=== PATIENT | female | born 1980 | race Caucasian/White ===

== ENCOUNTER 2017-04-08 13:23 | Emergency (ER) | payer MEDICAID ==
[2017-04-08] MEDS ORDERED: NORMAL SALINE 1000 ML 1,000 ML IV ONE ×2 (13:44→17:37)
[2017-04-08] MEDS ORDERED: PROCHLORPERAZINE EDISYLATE INJ 10 MG/2 ML VIAL IV ONE (13:44)
[2017-04-08] MEDS ORDERED: KETOROLAC TROMETHAMINE INJ/PF 30 MG/1 ML SDV IV ONE (13:44)
[2017-04-08] MEDS ORDERED: DIPHENHYDRAMINE HCL 50 MG/ML VIAL IV ONE (13:44)
--- NOTE | 2017-04-08 13:48 | ER Document Report ---
ED Medical Screen (RME) - General Chief Complaint: Headache Stated Complaint: HEADACHE Time Seen by Provider: 04/08/17 13:40 Notes: Patient with history of migraines according to her significant other/boyfriend. Past medical records obtained here show patient has multiple visits for migraines. Patient began having headache yesterday. Now having severe headache. Boyfriend states that she cannot talk when she gets this way. Patient was able to nod her head when asked if she wanted treatment. I have greeted and performed a rapid initial assessment of this patient. A comprehensive ED assessment and evaluation of the patient, analysis of test results and completion of the medical decision making process will be conducted by additional ED providers. TRAVEL OUTSIDE OF THE [place] IN LAST 30 DAYS: No - Related Data Allergies/Adverse Reactions: No Known Allergies Allergy (Verified 01/13/16 12:38) Past Medical History Neurological Medical History: Reports: Hx Migraine - Immunizations Hx Diphtheria, Pertussis, Tetanus Vaccination: Yes - 2 years Physical Exam - Vital signs Vitals: Temp Pulse Resp BP Pulse Ox 97.7 F 98 20 118/73 100 04/08/17 13:28 04/08/17 13:28 04/08/17 13:28 04/08/17 13:28 04/08/17 13:28 Course - Vital Signs Vital signs: Temp Pulse Resp BP Pulse Ox 97.7 F 98 20 118/73 100 04/08/17 13:28 04/08/17 13:28 04/08/17 13:28 04/08/17 13:28 04/08/17 13:28
--- NOTE | 2017-04-08 16:41 | ER Document Report ---
ED General - General Chief Complaint: Headache Stated Complaint: HEADACHE Time Seen by Provider: 04/08/17 13:40 Information source: Relative - TRAVEL OUTSIDE OF THE [place] IN LAST 30 DAYS: No - HPI Patient complains to provider of: headache Onset: This morning Notes: Patient at this moment is not talking to history is obtained by her . states that patient does occasionally get migraines. She takes Motrin or Tylenol at home and when they do not get better she goes emergency department for treatment. She is usually nonverbal until the pain is controlled. She also on occasion has lost sight and had weakness of one side of her body or the other with these migraines. states he went to work today and left home knowing she had a mild headache it was taking Motrin or Tylenol for it. When he arrived home he found vomit on the floor and he found the patient in bed nonverbal. He walked her to the car and then brought her here for evaluation. - Related Data Allergies/Adverse Reactions: No Known Allergies Allergy (Verified 01/13/16 12:38) Past Medical History - General Information source: Relative - - Social History Smoking Status: Unknown if Ever Smoked Frequency of alcohol use: None Drug Abuse: None Lives with: Family Family History: Reviewed & Not Pertinent, Other - father has hx of migraines Patient has suicidal ideation: No Patient has homicidal ideation: No - Past Medical History Cardiac Medical History: Reports: None Pulmonary Medical History: Reports: None EENT Medical History: Reports: None Neurological Medical History: Reports: Hx Migraine Endocrine Medical History: Reports: None Renal/ Medical History: Denies: Hx Peritoneal Dialysis Malignancy Medical History: Reports: None GI Medical History: Reports: None Musculoskeltal Medical History: Reports None Skin Medical History: Reports None Psychiatric Medical History: Reports: None Traumatic Medical History: Reports: None Infectious Medical History: Reports: None Past Surgical History: Reports: None Other: Medical history obtained from the . - Immunizations Hx Diphtheria, Pertussis, Tetanus Vaccination: Yes - 2 years Review of Systems - Review of Systems -: Yes ROS unobtainable due to patient's medical condition Physical Exam - Vital signs Vitals: Temp Pulse Resp BP Pulse Ox 97.7 F 98 20 118/73 100 04/08/17 13:28 04/08/17 13:28 04/08/17 13:28 04/08/17 13:28 04/08/17 13:28 - Notes Notes: PHYSICAL EXAMINATION: GENERAL: She was lying in bed prone with a blanket covering her and appeared in no acute distress. HEAD: Atraumatic, normocephalic. EYES: Pupils equal round and reactive to light, extraocular movements intact, conjunctiva are normal. ENT: Nares patent. Moist mucous membranes. NECK: Normal range of motion, supple without lymphadenopathy LUNGS: Breath sounds clear to auscultation bilaterally and equal. No wheezes rales or rhonchi. HEART: Regular rate and rhythm without murmurs ABDOMEN: Soft, nontender, nondistended abdomen. No guarding, no rebound. No masses appreciated. Female : deferred Musculoskeletal: Normal range of motion, no pitting or edema. No cyanosis. NEUROLOGICAL: Cranial nerves grossly intact. Normal motor exams PSYCH: Patient will sit up in bed to reach for the blanket strap herself in them. She will not make eye contact. She seems to be slightly agitated. She will occasionally but not consistently follow simple commands. She will not verbalize. SKIN: Warm, dry, normal turgor, no rashes or lesions noted. Course - Re-evaluation Re-evalutation: 04/08/17 16:44 Patient is difficult to examine. She is uncooperative at this time. She will sit up on her own grabbing a blankets to cover herself however she will not interact with me or answer any questions. I did reiterate to the nurse that she needs to establish an IV as well as simple blood work and having IV fluids. I also asked for a temperature and if needed a rectal temperature. I did explain to the that because the patient is not answering my questions and demonstrating normal mentation I need to investigate further to make sure there is no other process going on besides her normal migraine. Patient's verbalized understanding. Did order soft mittens for the patient because she has dislodged the IV. 04/08/17 17:37 Did review patient's old charts and the last time she was here she was here for headaches. Patient continually has a leukocytosis. She has even spiked a temp in the past. states that patient has had multiple spinal taps, MRIs, CTs and they have all been negative for any acute findings. Awaiting rest of labs to result. Patient is getting IV fluids. She is already received IV medications for her headache we will see if they have any effect on her pain. Vital signs remained stable. 04/08/17 18:48 Labs- All tests 24 hr 04/08/17 04/08/17 04/08/17 14:00 14:00 17:23 WBC 17.7 H RBC 4.70 Hgb 14.8 Hct 43.6 MCV 93 MCH 31.5 MCHC 34.0 RDW 13.4 Plt Count 322 Seg Neutrophils % 90.4 H Lymphocytes % 5.4 L Monocytes % 4.0 Eosinophils % 0.0 Basophils % 0.2 Absolute Neutrophils 16.0 H Absolute Lymphocytes 1.0 Absolute Monocytes 0.7 Absolute Eosinophils 0.0 Absolute Basophils 0.0 Sodium Cancelled Potassium Cancelled Chloride Cancelled Carbon Dioxide Cancelled Anion Gap Cancelled BUN Cancelled Creatinine Cancelled Est GFR ( Amer) Cancelled Est GFR (Non-Af Amer) Cancelled Glucose Cancelled Calcium Cancelled Total Bilirubin Cancelled Direct Bilirubin Cancelled Neonat Total Bilirubin Cancelled Neonat Direct Bilirubin Cancelled Neonat Indirect Bili Cancelled AST Cancelled ALT Cancelled Alkaline Phosphatase Cancelled Total Protein Cancelled Albumin Cancelled Urine Color YELLOW Urine Appearance CLEAR Urine pH 8.0 Ur Specific [place] 1.023 Urine Protein NEGATIVE Urine Glucose (UA) NEGATIVE Urine Ketones 20 H Urine Blood NEGATIVE Urine Nitrite NEGATIVE Urine Bilirubin NEGATIVE Urine Urobilinogen NEGATIVE Ur Leukocyte Esterase NEGATIVE Urine WBC (Auto) 1 Urine RBC (Auto) 1 Squamous Epi Cells Auto <1 Urine Mucus (Auto) OCC Urine Ascorbic Acid NEGATIVE Urine Opiates Screen Urine Methadone Screen Ur Barbiturates Screen Ur Phencyclidine Scrn Ur Amphetamines Screen U Benzodiazepines Scrn Urine Cocaine Screen U Marijuana (THC) Screen 04/08/17 04/08/17 17:23 18:11 WBC RBC Hgb Hct MCV MCH MCHC RDW Plt Count Seg Neutrophils % Lymphocytes % Monocytes % Eosinophils % Basophils % Absolute Neutrophils Absolute Lymphocytes Absolute Monocytes Absolute Eosinophils Absolute Basophils Sodium 138.3 Potassium 3.5 L Chloride 109 H Carbon Dioxide 21 L Anion Gap 8 BUN 9 Creatinine 0.63 Est GFR ( Amer) > 60 Est GFR (Non-Af Amer) > 60 Glucose 85 Calcium 8.6 Total Bilirubin 0.4 Direct Bilirubin 0.0 Neonat Total Bilirubin Not Reportable Neonat Direct Bilirubin Not Reportable Neonat Indirect Bili Not Reportable AST 26 ALT 33 Alkaline Phosphatase 77 Total Protein 6.5 Albumin 3.9 Urine Color Urine Appearance Urine pH Ur Specific [place] Urine Protein Urine Glucose (UA) Urine Ketones Urine Blood Urine Nitrite Urine Bilirubin Urine Urobilinogen Ur Leukocyte Esterase Urine WBC (Auto) Urine RBC (Auto) Squamous Epi Cells Auto Urine Mucus (Auto) Urine Ascorbic Acid Urine Opiates Screen NEGATIVE Urine Methadone Screen NEGATIVE Ur Barbiturates Screen NEGATIVE Ur Phencyclidine Scrn NEGATIVE Ur Amphetamines Screen NEGATIVE U Benzodiazepines Scrn NEGATIVE Urine Cocaine Screen NEGATIVE U Marijuana (THC) Screen NEGATIVE 04/08/17 18:48 Pt is more awake. Talking to her a bit. Third liter of NSS ordered. 04/08/17 18:58 Pt. more awake now. Opens eyes with verbal stimuli by . Third liter infusing. No meningeal signs. Pt. will sit up in bed and move her head all around without any signs of discomfort. She has no photophobia upon opening her eyes in the brightly lite room. Pt.'s states patient is acting normal for her migraines. She is improving. Closely monitoring patient at this time. 04/08/17 19:08 04/08/17 19:37 Holding patient's left arm straight so that the IV infuses. 500 cc more to go. has been by the bedside for most of the patient's visit. s He had to go home for a short time to get medications that were locked up so his parents can give them to his children. She does now open her eyes with verbal stimuli. She is taking a few sips of ice water. he states she does not have a neurologist and is not taking any medications for her migraines except motrin or tylenol. She did take some tylenol today but he is not sure at what time. 04/08/17 20:04 Pt. awake and ambulatory. Verbal with a "fuck you" to RN as she was taking out IV. states he wants to take patient home to sleep. I did go over reasons to bring her back including but not limited to fevers, return of headache, decreased mentation . 04/09/17 09:12 I did call the patient this morning. I spoke to her Toñito. He states that the patient's headache has resolved she has been up into the bathroom she is drinking fluids and is on his way to get her something to eat. I did tell him to definitely touch base with her primary medical doctor or neurologist to see if she will be placed on a medication to that in the future when she feels her prodrome for migraine she can take medication to try and avert this. He also stated that she did not recall the events of last evening. - Vital Signs Vital signs: Temp Pulse Resp BP Pulse Ox 98.0 F 102 H 20 129/91 H 98 04/08/17 19:40 04/08/17 19:40 04/08/17 13:28 04/08/17 19:40 04/08/17 19:40 04/08/17 19:47 Temp Pulse Resp BP Pulse Ox 100.3 F 94 20 124/77 99 04/08/17 17:13 04/08/17 17:15 04/08/17 13:28 04/08/17 17:15 04/08/17 17:15 04/08/17 19:48 Pt.'s vitals WNL at this time. Temp is 98.3. - Laboratory Result Diagrams: 04/08/17 14:00 04/08/17 18:11 Laboratory results interpreted by me: 04/08/17 04/08/17 04/08/17 14:00 17:23 18:11 WBC 17.7 H Seg Neutrophils % 90.4 H Lymphocytes % 5.4 L Absolute Neutrophils 16.0 H Potassium 3.5 L Chloride 109 H Carbon Dioxide 21 L Urine Ketones 20 H Discharge - Discharge Clinical Impression: Migraine Condition: Stable Disposition: HOME, SELF-CARE Instructions: Headache ([facility]) Additional Instructions: Follow up with your physician tomorrow for further care or return to the ED IMMEDIATELY if symptoms worsen or new concerns occur. If you cannot afford to follow up with your primary care physician a list of low cost clinics have been provided at the end of your discharge papers as well. Referrals: IMMANUEL WEINER MD [ACTIVE STAFF] - Follow up as needed JOHN REEVES MD [ACTIVE STAFF] - Follow up as needed
[2017-04-08 17:29] LABS: ABSOLUTE MONOCYTES (AUTO) 0.7 10^3/uL (0.1-1.4); BASOPHILS % (AUTO) 0.2 % (0-2); HEMATOCRIT 43.6 % (36.0-47.0); HEMOGLOBIN 14.8 g/dL (12.0-15.5); LYMPHOCYTES % (AUTO) 5.4 % (13-45); MEAN CORPUSCULAR HEMOGLOBIN 31.5 pg (27.0-33.4); MEAN CORPUSCULAR VOLUME 93 fl (80-97); PLATELET COUNT 322 10^3/uL (150-450); RED CELL DISTRIBUTION WIDTH 13.4 % (11.5-14.0); SEGMENTED NEUTROPHILS % (AUTO) 90.4 % (42-78); TOTAL CELLS COUNTED % (AUTO) 100 %; WHITE BLOOD COUNT 17.7 10^3/uL (4.0-10.5)
[2017-04-08 17:50] LABS: APPEARANCE,URINE CLEAR; BILIRUBIN,URINE NEGATIVE (NEGATIVE); COLOR,URINE YELLOW; GLUCOSE, URINE NEGATIVE (NEGATIVE); KETONES,URINE 20 mg/dL (NEGATIVE); LEUKOCYTE ESTERASE,URINE NEGATIVE (NEGATIVE); NITRITE,URINE NEGATIVE (NEGATIVE); PROTEIN,URINE NEGATIVE (NEGATIVE); URINE SPECIFIC GRAVITY 1.023; UROBILINOGEN,URINE NEGATIVE mg/dL (<2.0)
[2017-04-08 18:06] LABS: URINE AMPHETAMINES SCREEN NEGATIVE; URINE BARBITURATES SCREEN NEGATIVE; URINE BENZODIAZEPINES SCREEN NEGATIVE; URINE COCAINE SCREEN NEGATIVE; URINE MARIJUANA (THC) SCREEN NEGATIVE; URINE METHADONE SCREEN NEGATIVE; URINE PHENCYCLIDINE SCREEN NEGATIVE
[2017-04-08 18:41] LABS: ALANINE AMINOTRANSFERASE 33 U/L (9-52); ALBUMIN 3.9 g/dL (3.5-5.0); ALKALINE PHOSPHATASE 77 U/L (38-126); ANION GAP 8 (5-19); ASPARTATE AMINO TRANSFERASE 26 U/L (14-36); BILIRUBIN,TOTAL 0.4 mg/dL (0.2-1.3); BLOOD UREA NITROGEN 9 mg/dL (7-20); CALCIUM 8.6 mg/dL (8.4-10.2); CARBON DIOXIDE 21 mmol/L (22-30); CHLORIDE 109 mmol/L (98-107); GLUCOSE 85 mg/dL (75-110); POTASSIUM 3.5 mmol/L (3.6-5.0); SODIUM 138.3 mmol/L (137-145); TOTAL PROTEIN 6.5 g/dL (6.3-8.2)
[2017-04-08 20:08] VITALS: BP 129/91
== END 2017-04-08 20:08 | disposition home or self-care (01) ==
LOC: ER 13:23
DX: G43.909 Migraine, unspecified, not intractable, without status migrainosus (principal)
CPT/HCPCS: 99285; 96361; 51701; 96374; 96375; 36415; 85025; 80053; 81001; 80307; J1200; J1885; J0780; J7030

== ENCOUNTER 2017-07-31 19:23 | Emergency (ER) | payer MEDICAID ==
[2017-07-31 19:50] VITALS: BP 121/81
[2017-07-31] MEDS ORDERED: KETOROLAC TROMETHAMINE INJ/PF 30 MG/1 ML SDV IM ONE (20:39)
[2017-07-31] MEDS ORDERED: METOCLOPRAMIDE HCL INJ/PF 10 MG/2 ML SDV IM ONE (20:39)
[2017-07-31] MEDS ORDERED: DIPHENHYDRAMINE HCL 50 MG/ML VIAL IM ONE (20:39)
--- NOTE | 2017-07-31 20:42 | ER Document Report ---
ED Headache - General Chief Complaint: Headache Stated Complaint: HEADACHE Time Seen by Provider: 07/31/17 20:33 Mode of Arrival: Ambulatory Information source: Relative Cannot obtain history due to: Uncooperative TRAVEL OUTSIDE OF THE [place] IN LAST 30 DAYS: No - HPI Patient complains to provider of: Headache Notes: Patient is here with her significant other at the bedside. Patient is here with complaints of headache. Apparently she has a history of migraine headaches and the longer she has a headache the more unresponsive she gets according to her significant other. Is unable to get any significant history from the patient herself, she will open her eyes but will not answer any questions. Again her significant other states that this is her typical activity during a migraine. He denies any falls or injuries. No fever. No vomiting or diarrhea. He does report that she was complaining of some nausea earlier in the day. No rashes. No chest pain or shortness of breath. No neck stiffness. No blood thinners. No other complaints at this time. - Related Data Allergies/Adverse Reactions: No Known Allergies Allergy (Verified 01/13/16 12:38) Past Medical History - Social History Smoking Status: Current Every Day Smoker Family History: Reviewed & Not Pertinent, Other - father has hx of migraines Neurological Medical History: Reports: Hx Migraine Renal/ Medical History: Denies: Hx Peritoneal Dialysis - Immunizations Hx Diphtheria, Pertussis, Tetanus Vaccination: Yes - 2 years Review of Systems - Review of Systems -: Yes All other systems reviewed and negative Physical Exam - Vital signs Vitals: Temp Pulse Resp BP Pulse Ox 97.5 F 84 18 121/81 100 07/31/17 19:48 07/31/17 19:48 07/31/17 19:48 07/31/17 19:48 07/31/17 19:48 - Notes Notes: GENERAL: alert, cooperative, nontoxic, no distress. HEAD: normocephalic, atraumatic EYES: conjunctiva pink without discharge, no external redness or swelling. Pupils equal round react to light bilaterally. EARS: no external swelling, no external redness. TMs pearly diane, no erythema, no perforation. NOSE: atraumatic, no external swelling MOUTH/THROAT: mucous membranes moist and pink, posterior pharynx without erythema, swelling, exudate. No trismus or drooling. NECK: soft, supple, full range of motion, no meningismus. CHEST: no distress, lungs clear and equal throughout. No wheezing, rales, rhonchi. CARDIAC: regular rate and rhythm, no murmur, normal capillary refill, normal pulses. No peripheral edema noted. ABDOMEN: Soft, nontender. BACK: full range of motion, no CVA tenderness. EXTREMITIES: full range of motion of all extremities. No redness, no swelling. NEURO: Patient is moving all 4 extremities. Patient will open her eyes but will not really follow any commands. She has no obvious facial asymmetry. Significant other states that this is her normal behavior during a migraine. PYSCH: appropriate mood, affect. Patient is cooperative. SKIN: pink, warm, dry, no rash. Course - Re-evaluation Re-evalutation: 07/31/17 22:51 Patient continues to wake up but not really follow commands. She will perform activities such as covering herself up and turning over in adjusting her pillow , but will not answer questions or follow commands. She fought the nursing staff when trying to get her injections for her migraine medicine. I discussed patient's state with her , he states that this is her normal behavior when she has a migraine. He states that she will be like this until tomorrow when she wakes up. States that he would prefer to take the patient home at this time as this is her normal behavior with a migraine. In reviewing her records, this is the patient's typical presentation when she has been here for migraines. She has had audible workups in the past without any significant findings. Did offer further workup of the patient, but the declines as he states this is her very typical behavior. Patient has a nonfocal neurological exam. She is afebrile. No rash. Remainder of her exam is unremarkable. The 's request, the patient will be discharged home without further workup. He will be instructed to return immediately should she develop any worsening symptoms, high fever, persistent vomiting, or have any further concerns. The patient is noted to have elevated blood pressure during today's emergency department visit. The patient was informed of this finding. The patient was instructed that this may be related to pre-hypertension and requires further evaluation with a primary care provider. The patient has no hypertensive symptoms at this time. The patient's emergency department workup and current diagnosis were explained to the patient and or family. Follow-up instructions were provided. Medications if prescribed were discussed. Instructions for when to return to the emergency department including specific worrisome symptoms were discussed with the patient and/or family. - Vital Signs Vital signs: Temp Pulse Resp BP Pulse Ox 97.5 F 84 18 121/81 100 07/31/17 19:48 07/31/17 19:48 07/31/17 19:48 07/31/17 19:48 07/31/17 19:48 Discharge - Discharge Clinical Impression: Migraine Qualifiers: Migraine type: without aura Status migrainosus presence: without status migrainosus Intractability: not intractable Qualified Code(s): G43.009 - Migraine without aura, not intractable, without status migrainosus Condition: Stable Disposition: HOME, SELF-CARE Instructions: Headache ([facility]) Additional Instructions: Follow-up with her doctor at the next available appointment. Return the emergency department for worsening symptoms, high fever, neck stiffness, persistent vomiting, rash, or for any further concerns. Your blood pressure was elevated during today's visit. Have this rechecked with your doctor. Forms: Elevated Blood Pressure, Smoking Cessation Education Referrals: HOOD HEMPHILL MD [Primary Care Provider] - Follow up as needed
== END 2017-07-31 23:13 | disposition home or self-care (01) ==
LOC: ER 19:23
DX: G43.009 Migraine without aura, not intractable, without status migrainosus (principal); F17.200 Nicotine dependence, unspecified, uncomplicated
CPT/HCPCS: 99283; 96372; J1200; J1885; J2765

== ENCOUNTER 2017-08-10 06:47 | Emergency (ER) | payer MEDICAID ==
--- NOTE | 2017-08-10 07:07 | ER Document Report ---
ED Headache - General Chief Complaint: Headache Stated Complaint: HEADACHE Mode of Arrival: Ambulatory Information source: Patient Notes: 37-year-old female complaining of right sided throbbing headache that started yesterday morning when she woke up. It is very typical for her headaches. Her father had migraines and she gets headaches every several months although she did have one last week that she was treated in the emergency department for the only medicine she has at home to treat the headaches as Motrin and Tylenol. She missed work yesterday and today but they do not accept work notes. No fever or chills. No sore throat runny nose or cough. No chest pain or abdominal pain. No vomiting or diarrhea. No rash. Denies . TRAVEL OUTSIDE OF THE [place] IN LAST 30 DAYS: No - Related Data Allergies/Adverse Reactions: No Known Allergies Allergy (Verified 01/13/16 12:38) Past Medical History - General Information source: Patient - Social History Smoking Status: Current Every Day Smoker Frequency of alcohol use: None Drug Abuse: None Lives with: Spouse/Significant other Family History: Reviewed & Not Pertinent, Other - father has hx of migraines Neurological Medical History: Reports: Hx Migraine Renal/ Medical History: Denies: Hx Peritoneal Dialysis Surgical Hx: Negative - Immunizations Hx Diphtheria, Pertussis, Tetanus Vaccination: Yes - 2 years Review of Systems - Review of Systems Constitutional: No symptoms reported EENT: No symptoms reported Cardiovascular: No symptoms reported Respiratory: No symptoms reported Gastrointestinal: No symptoms reported Genitourinary: No symptoms reported Female Genitourinary: No symptoms reported Musculoskeletal: No symptoms reported Skin: No symptoms reported Hematologic/Lymphatic: No symptoms reported Neurological/Psychological: See HPI Physical Exam - Vital signs Vitals: Temp Pulse Resp BP Pulse Ox 97.7 F 74 16 112/81 97 08/10/17 06:49 08/10/17 06:49 08/10/17 06:49 08/10/17 06:49 08/10/17 06:49 Interpretation: Normal - General General appearance: Appears well, Alert - HEENT Head: Normocephalic, Atraumatic Eyes: Normal Conjunctiva: Normal Extraocular movements intact: Yes Pupils: PERRL Neck: Supple. No: Lymphadenopathy - Respiratory Respiratory status: No respiratory distress Chest status: Nontender Breath sounds: Normal Chest palpation: Normal - Cardiovascular Rhythm: Regular Heart sounds: Normal auscultation Murmur: No - Abdominal Inspection: Normal Distension: No distension Bowel sounds: Normal Tenderness: Nontender Organomegaly: No organomegaly - Back Back: Normal, Nontender - Extremities General upper extremity: Normal inspection, Nontender, Normal color, Normal ROM , Normal temperature General lower extremity: Normal inspection, Nontender, Normal color, Normal ROM , Normal temperature, Normal weight bearing. No: Dagmar's sign - Neurological Neuro grossly intact: Yes Cognition: Normal Orientation: AAOx4 Fadi Coma Scale Eye Opening: Spontaneous Fadi Coma Scale Verbal: Oriented [place] Coma Scale Motor: Obeys Commands Fadi Coma Scale Total: 15 Speech: Normal Motor strength normal: LUE, RUE, LLE, RLE Sensory: Normal - Psychological Associated symptoms: Normal affect, Normal mood - Skin Skin Temperature: Warm Skin Moisture: Dry Skin Color: Normal Skin irregularity: negative: Rash Course - Re-evaluation Re-evalutation: 08/10/17 08:41 Headache is down to 2.5/5 feels like she can go home. Physical exam is normal. She has seen neurologist before for these headaches. Her dad had a history of migraines. She gets them every couple months although she had one last week. Medicine at home she has for headaches with Motrin and Tylenol. I will add in Reglan p.o. to see if that helps. 08/10/17 08:42 - Vital Signs Vital signs: Temp Pulse Resp BP Pulse Ox 97.7 F 74 16 112/81 97 08/10/17 06:49 08/10/17 06:49 08/10/17 06:49 08/10/17 06:49 08/10/17 06:49 Discharge - Discharge Clinical Impression: Headache Qualifiers: Headache type: unspecified Headache chronicity pattern: acute headache Intractability: not intractable Qualified Code(s): R51 - Headache Condition: Good Disposition: HOME, SELF-CARE Instructions: Use of Diphenhydramine, Headache ([facility]), Reglan ([facility]), Toradol Injection ([facility]) Additional Instructions: When he had a headache at home trying Motrin 800 mg, Tylenol 650 mg, Benadryl 50 mg, Reglan 10 mg p.o. to see if that helps. See the neurologist for follow-up Return to the emergency room if symptoms worsen Prescriptions: Metoclopramide HCl [Reglan 10 mg Tablet] 10 mg PO QIDP PRN #30 tablet PRN Reason: For Headache Forms: Return to Work Referrals: IMMANUEL WEINER MD [NO LOCAL MD] - Follow up as needed
[2017-08-10] MEDS ORDERED: METOCLOPRAMIDE HCL INJ/PF 10 MG/2 ML SDV IV ONE (07:12)
[2017-08-10] MEDS ORDERED: NORMAL SALINE 1000 ML 1,000 ML IV ONE (07:12)
[2017-08-10] MEDS ORDERED: DIPHENHYDRAMINE HCL 50 MG/ML VIAL IV ONE (07:12)
[2017-08-10] MEDS ORDERED: KETOROLAC TROMETHAMINE INJ/PF 30 MG/1 ML SDV IV ONE (07:12)
[2017-08-10 09:27] VITALS: BP 105/73
== END 2017-08-10 09:40 | disposition home or self-care (01) ==
LOC: ER 06:47
DX: R51 Headache (principal); F17.200 Nicotine dependence, unspecified, uncomplicated
CPT/HCPCS: 99284; 96361; 96374; 96375; J1200; J1885; J2765; J7030

== ENCOUNTER 2017-10-02 13:32 | Emergency (ER) | payer MEDICAID ==
[2017-10-02 13:41] VITALS: BP 108/70
[2017-10-02] MEDS ORDERED: METOCLOPRAMIDE HCL INJ/PF 10 MG/2 ML SDV IV ONE (14:01)
--- NOTE | 2017-10-02 14:01 | ER Document Report ---
ED Medical Screen (RME) - General Chief Complaint: Headache Stated Complaint: HEADACHE Mode of Arrival: Wheelchair Information source: Patient Notes: This is a 37-year-old female with a history of migraine headache that has had multiple encounters in the ER for such. Previous records show that she has a difficult time following commands during the acute migraine process and that seems to be her baseline when she is suffering from an acute migraine. In triage she has a difficult time answering questions but does state this is typical of her migraine. TRAVEL OUTSIDE OF THE [place] IN LAST 30 DAYS: No - Related Data Allergies/Adverse Reactions: No Known Allergies Allergy (Verified 10/02/17 13:32) Past Medical History Neurological Medical History: Reports: Hx Migraine Renal/ Medical History: Denies: Hx Peritoneal Dialysis - Immunizations Hx Diphtheria, Pertussis, Tetanus Vaccination: Yes - 2 years Physical Exam - Vital signs Vitals: Temp Pulse Resp BP Pulse Ox 97.5 F 80 20 108/70 99 10/02/17 13:38 10/02/17 13:38 10/02/17 13:38 10/02/17 13:38 10/02/17 13:38 Course - Vital Signs Vital signs: Temp Pulse Resp BP Pulse Ox 97.5 F 80 20 108/70 99 10/02/17 13:38 10/02/17 13:38 10/02/17 13:38 10/02/17 13:38 10/02/17 13:38 Doctor's Discharge - Discharge Referrals: ANA LAURA LATHAM MD [Primary Care Provider] - Follow up as needed
[2017-10-02] MEDS ORDERED: HYDROMORPHONE HCL INJ/PF 2 MG/ML AMPULE IV ONE (14:02)
[2017-10-02] MEDS ORDERED: DIPHENHYDRAMINE HCL 50 MG/ML VIAL IV ONE (14:02)
[2017-10-02] MEDS ORDERED: KETOROLAC TROMETHAMINE INJ/PF 30 MG/1 ML SDV IV ONE (14:06)
[2017-10-02] MEDS ORDERED: PROCHLORPERAZINE EDISYLATE INJ 10 MG/2 ML VIAL IV ONE (14:34)
--- NOTE | 2017-10-02 14:46 | ER Document Report ---
ED General - General Chief Complaint: Headache Stated Complaint: HEADACHE Time Seen by Provider: 10/02/17 14:15 Mode of Arrival: Wheelchair Information source: Patient, Relative - at bedside, [facility] Records Cannot obtain history due to: Uncooperative Notes: 37-year-old female history of migraine headache presents with complaints of a migraine headache that started this morning at 10 AM. Patient denies any fevers or chills notes that this is similar to her previous migraines. Patient upon evaluation is noted to be at her usual migraine state where she is quite uncooperative and refuses to answer most questions and continues to scream and curse at staff TRAVEL OUTSIDE OF THE [place] IN LAST 30 DAYS: No - HPI Onset: This morning Onset/Duration: Sudden Quality of pain: Pressure, Throbbing Severity: Moderate Pain Level: 3 Associated symptoms: Headache Exacerbated by: Denies Relieved by: Denies Similar symptoms previously: Yes Recently seen / treated by doctor: Yes - Related Data Allergies/Adverse Reactions: No Known Allergies Allergy (Verified 10/02/17 13:32) Past Medical History - General Information source: Patient - Social History Smoking Status: Current Every Day Smoker Cigarette use (# per day): Yes Chew tobacco use (# tins/day): No Smoking Education Provided: No Frequency of alcohol use: Occasional Drug Abuse: None Family History: Reviewed & Not Pertinent, Other - father has hx of migraines Patient has suicidal ideation: No Patient has homicidal ideation: No Neurological Medical History: Reports: Hx Migraine Renal/ Medical History: Denies: Hx Peritoneal Dialysis - Immunizations Hx Diphtheria, Pertussis, Tetanus Vaccination: Yes - 2 years Review of Systems - Review of Systems Notes: REVIEW OF SYSTEMS: CONSTITUTIONAL : Denies fever, chills, or sweats. Denies recent illness. EENT: Denies eye, ear, throat, or mouth pain or symptoms. Denies nasal or sinus congestion or discharge. Denies throat, tongue, or mouth swelling or difficulty swallowing. CARDIOVASCULAR: Denies chest pain. Denies palpitations or racing or irregular heart beat. Denies ankle edema. RESPIRATORY: Denies cough, cold, or chest congestion. Denies shortness of breath, difficulty breathing, or wheezing. GASTROINTESTINAL: Denies abdominal pain or distention. Denies nausea, vomiting , or diarrhea. Denies blood in vomitus, stools, or per rectum. Denies black, tarry stools. Denies constipation. GENITOURINARY: Denies difficulty urinating, painful urination, burning, frequency, blood in urine, or discharge. FEMALE GENITOURINARY: Denies vaginal bleeding, heavy or abnormal periods, irregular periods. Denies vaginal discharge or odor. MUSCULOSKELETAL: Denies back or neck pain or stiffness. Denies joint pain or swelling. SKIN: Denies rash, lesions or sores. HEMATOLOGIC : Denies easy bruising or bleeding. LYMPHATIC: Denies swollen, enlarged glands. NEUROLOGICAL: Admits to chronic migraine headache difficulty ambulating which appears to be baseline during headaches PSYCHIATRIC: Denies anxiety or stress. Denies depression, suicidal ideation, or homicidal ideation. ALL OTHER SYSTEMS REVIEWED AND NEGATIVE. PHYSICAL EXAMINATION: GENERAL: Patient is verbally abusive towards staff HEAD: Atraumatic, normocephalic. EYES: Pupils equal round and reactive to light, extraocular movements intact, conjunctiva are normal. ENT: Nares patent, oropharynx clear without exudates. Moist mucous membranes. NECK: Normal range of motion, supple without lymphadenopathy LUNGS: Breath sounds clear to auscultation bilaterally and equal. No wheezes rales or rhonchi. HEART: Regular rate and rhythm without murmurs ABDOMEN: Soft, nontender, nondistended abdomen. No guarding, no rebound. No masses appreciated. Female : deferred Musculoskeletal: Normal range of motion, no pitting or edema. No cyanosis. NEUROLOGICAL: Cranial nerves grossly intact. Normal speech, normal gait. Normal sensory, motor exams PSYCH: Verbally abusive SKIN: Warm, Dry, normal turgor, no rashes or lesions noted. Dictation was performed using [employer] voice recognition software Physical Exam - Vital signs Vitals: Temp Pulse Resp BP Pulse Ox 97.5 F 80 20 108/70 99 10/02/17 13:38 10/02/17 13:38 10/02/17 13:38 10/02/17 13:38 10/02/17 13:38 Course - Re-evaluation Re-evalutation: 10/02/17 14:46 Evaluation of multiple previous episodes of similar migraine headaches notes that patient becomes aggressive abusive continues to be uncooperative with medical staff nonetheless she will be treated with a migraine cocktail for her headache 10/02/17 15:30 Patient's resting comfortably, states she will sleep all day and requested I discharge patient home so he can take care of her there, him that he is on this multiple times in the past and believe she is safe for discharge After performing a Medical Screening Examination, I estimate there is LOW risk for ACUTE GLAUCOMA, TEMPORAL ARTERITIS, MENINGITIS, INCRANIAL HEMORRHAGE, or ISCHEMIC STROKE thus I consider the discharge disposition reasonable. I have reevaluated this patient multiple times and no significant life threatening changes are noted. The patient and I have discussed the diagnosis and risks, and we agree with discharging home with close follow-up with the understanding that symptoms and presentations can change. We also discussed returning to the Emergency Department immediately if new or worsening symptoms occur. We have discussed the symptoms which are most concerning (e.g., changing or worsening symptoms, new numbness or weakness, vomiting, fever) that necessitate immediate return. - Vital Signs Vital signs: Temp Pulse Resp BP Pulse Ox 97.5 F 80 20 108/70 99 10/02/17 13:38 10/02/17 13:38 10/02/17 13:38 10/02/17 13:38 10/02/17 13:38 - Laboratory Result Diagrams: 10/02/17 14:50 10/02/17 14:50 Laboratory results interpreted by me: 10/02/17 14:50 WBC 14.8 H Absolute Neutrophils 11.4 H Discharge - Discharge Clinical Impression: Migraine headache Qualifiers: Migraine type: unspecified Status migrainosus presence: without status migrainosus Intractability: not intractable Qualified Code(s): G43.909 - Migraine, unspecified, not intractable, without status migrainosus Condition: Stable Disposition: HOME, SELF-CARE Instructions: Headache ([facility]) Additional Instructions: Follow up with your physician tomorrow for further care or return to the ED IMMEDIATELY if symptoms worsen or new concerns occur. If you cannot afford to follow up with your primary care physician a list of low cost clinics have been provided at the end of your discharge papers as well. Referrals: ANA LAURA LATHAM MD [NO LOCAL MD] - Follow up as needed
[2017-10-02 15:09] LABS: ABSOLUTE BASOPHILS # (AUTO) 0.1 10^3/uL (0.0-0.2); ABSOLUTE EOSINOPHILS # (AUTO) 0.1 10^3/uL (0.0-0.6); ABSOLUTE LYMPHOCYTES (AUTO) 2.4 10^3/uL (0.5-4.7); ABSOLUTE MONOCYTES (AUTO) 0.9 10^3/uL (0.1-1.4); ABSOLUTE NEUT (AUTO) 11.4 10^3/uL (1.7-8.2); BASOPHILS % (AUTO) 0.6 % (0-2); EOSINOPHILS % (AUTO) 0.9 % (0-6); HEMATOCRIT 44.5 % (36.0-47.0); HEMOGLOBIN 14.8 g/dL (12.0-15.5); LYMPHOCYTES % (AUTO) 16.2 % (13-45); MEAN CORPUSCULAR HEMOGLOBIN 31.3 pg (27.0-33.4); MEAN CORPUSCULAR HGB CONC 33.2 g/dL (32.0-36.0); MEAN CORPUSCULAR VOLUME 94 fl (80-97); MONOCYTES % (AUTO) 5.7 % (3-13); PLATELET COUNT 190 10^3/uL (150-450); RED BLOOD COUNT 4.73 10^6/uL (3.72-5.28); RED CELL DISTRIBUTION WIDTH 13.3 % (11.5-14.0); SEGMENTED NEUTROPHILS % (AUTO) 76.6 % (42-78); TOTAL CELLS COUNTED % (AUTO) 100 %; WHITE BLOOD COUNT 14.8 10^3/uL (4.0-10.5)
== END 2017-10-02 15:36 | disposition home or self-care (01) ==
LOC: ER 13:32
DX: G43.909 Migraine, unspecified, not intractable, without status migrainosus (principal); F17.210 Nicotine dependence, cigarettes, uncomplicated
CPT/HCPCS: 99283; 96374; 96375; 36415; 85025; J1200; J1885; J0780

== ENCOUNTER 2017-10-02 18:47 | Emergency (ER) | payer MEDICAID ==
[2017-10-02] MEDS ORDERED: METOCLOPRAMIDE HCL INJ/PF 10 MG/2 ML SDV IV ONE (20:02)
[2017-10-02] MEDS ORDERED: DIPHENHYDRAMINE HCL 50 MG/ML VIAL IV ONE (20:02)
[2017-10-02] MEDS ORDERED: LIDOCAINE 1% INJ-PF (10 MG/ML) 30 ML SDV INJ ONE (20:03)
--- NOTE | 2017-10-02 20:25 | ER Document Report ---
ED General - General Chief Complaint: Headache Stated Complaint: FEVER,MIGRAINE Time Seen by Provider: 10/02/17 19:44 TRAVEL OUTSIDE OF THE [place] IN LAST 30 DAYS: No - HPI Notes: 37-year-old female presents with fever, headache and neck pain and stiffness. Patient of note was seen here several hours ago which time she had presented with her typical migraine and received some type of "cocktail". She gone home and had some improvement but then woke up and had headache and now complains of continuing neck pain and stiffness as well as fever now. 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 Throbbing aching severe bifrontal headache, moderate neck pain and stiffness, sharp, worse with motion. She indicates much of her symptomatology is consistent with previous migraines. She however denies any other source of infection. She has no runny nose, cough, congestion, abdominal pain, diarrhea, urinary symptoms or back pain. Gradual onset. Nonradiating except as described. No other modifying factors, no other associated symptoms, no other provocative or palliative factors. - Related Data Allergies/Adverse Reactions: No Known Allergies Allergy (Verified 10/02/17 13:32) Past Medical History - Social History Smoking Status: Current Every Day Smoker Frequency of alcohol use: Occasional Drug Abuse: None Family History: Reviewed & Not Pertinent, Other - father has hx of migraines Patient has suicidal ideation: No Patient has homicidal ideation: No - Past Medical History Cardiac Medical History: Reports: None Neurological Medical History: Reports: Hx Migraine Renal/ Medical History: Denies: Hx Peritoneal Dialysis - Immunizations Hx Diphtheria, Pertussis, Tetanus Vaccination: Yes - 2 years Review of Systems - Review of Systems Notes: Review of systems as in the history of present illness, otherwise negative x 10 systems. Physical Exam - Vital signs Vitals: Temp Pulse Resp BP Pulse Ox 99.2 F 93 20 106/61 98 10/02/17 18:56 10/02/17 18:56 10/02/17 18:56 10/02/17 18:56 10/02/17 18:56 - Notes Notes: General: Well developed . HEENT: Normocephalic, atraumatic. Pupils equal round reactive to light. No JVD. Chest: No trauma. Respiratory: Good air exchange, normal excursion. Cardiac: Regular rhythm. No murmurs or gallops. Abdomen: Soft, benign. Nondistended. Nontender. Back: No asymmetry or gross abnormality. Motor: Grossly normal power and tone. Neurologic: Alert, nonfocal. Cranial nerves II-12 are intact. Sensation intact. Vascular: Well perfused. Normal peripheral pulses. Skin: No petechiae or purpura. Course - Re-evaluation Re-evalutation: 10/02/17 20:25 37-year-old female the after mentioned symptoms. Much of her symptomatology suggest recurrence of her chronic migraine. However, the fever and associated neck symptoms certainly are concerning for meningitis or meningoencephalitis. At this point we will proceed with basic labs, IV fluids, analgesics, antiemetics, proceed with lumbar puncture 10/02/17 22:38 Patient refused to provide urine. Indicates she had a recent normal. Is not as well. Labs reviewed, mild leukocytosis is noted. CSF shows 1 white cell, no reds. Normal protein and glucose. 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 Given headache and fever and unexplained sores, will err on the side of caution and cover with doxycycline. She is given a dose in the ED, prescription for the same. Discharged home to follow-up as discussed. She appears to be resting comfortably at this time. - Vital Signs Vital signs: Temp Pulse Resp BP Pulse Ox 99.2 F 93 20 106/61 98 10/02/17 18:56 10/02/17 18:56 10/02/17 18:56 10/02/17 18:56 10/02/17 18:56 - Laboratory Result Diagrams: 10/02/17 21:18 10/02/17 21:18 Laboratory results interpreted by me: 10/02/17 10/02/17 21:18 21:18 WBC 15.5 H Absolute Neutrophils 12.1 H Potassium 3.5 L Procedures - Lumbar Puncture Lumbar puncture Consent obtained: Yes Lumbar puncture pre-procedure: Sterile PPE donned, Betadine prep applied Patient position: Sitting Needle size: 20 Lumbar puncture location: l2-l3 Anesthetic type: 1% Lidocaine mL's of anesthetic: 5 Amount/type of drainage: clear 4cc Number of attempts: 3 Complications: No Discharge - Discharge Clinical Impression: Fever Qualifiers: Fever type: unspecified Qualified Code(s): R50.9 - Fever, unspecified Headache Qualifiers: Headache type: unspecified Headache chronicity pattern: acute headache Intractability: not intractable Qualified Code(s): R51 - Headache Condition: Good Disposition: HOME, SELF-CARE Instructions: Headache ([facility]), Fever ([facility])
[2017-10-02 21:48] LABS: GLUCOSE,CSF 51 mg/dL (40-70); PROTEIN,CSF 24 mg/dL (12-60)
[2017-10-02 21:57] LABS: ANION GAP 10 (5-19); BLOOD UREA NITROGEN 11 mg/dL (7-20); CALCIUM 8.8 mg/dL (8.4-10.2); CARBON DIOXIDE 22 mmol/L (22-30); CHLORIDE 106 mmol/L (98-107); GLUCOSE 83 mg/dL (75-110); POTASSIUM 3.5 mmol/L (3.6-5.0); SODIUM 137.7 mmol/L (137-145)
[2017-10-02 22:03] LABS: APPEARANCE TUBE 1 CLEAR; APPEARANCE TUBE 2 CLEAR; APPEARANCE TUBE 3 CLEAR; COLOR ALL TUBES COLORLESS; COLOR TUBE 1 COLORLESS; COLOR TUBE 2 COLORLESS; COLOR TUBE 3 COLORLESS; COLOR TUBE 4 COLORLESS; CSF TUBE NUMBER 4
[2017-10-02 22:04] LABS: APPEARANCE ALL TUBES CLEAR; APPEARANCE TUBE 4 CLEAR; CSF TOTAL VOLUME 4.5 CC; VOLUME TUBE 4 1.5 CC
[2017-10-02 22:15] LABS: RED BLOOD CELL,CSF 0 /uL (0-10); WHITE BLOOD CELL,CSF 1 /uL (0-5)
[2017-10-02 22:24] LABS: ABSOLUTE LYMPHOCYTES (AUTO) 2.3 10^3/uL (0.5-4.7); ABSOLUTE NEUT (AUTO) 12.1 10^3/uL (1.7-8.2); BASOPHILS % (AUTO) 0.3 % (0-2); EOSINOPHILS % (AUTO) 0.3 % (0-6); HEMATOCRIT 38.2 % (36.0-47.0); LYMPHOCYTES % (AUTO) 14.9 % (13-45); MEAN CORPUSCULAR HEMOGLOBIN 32.1 pg (27.0-33.4); MEAN CORPUSCULAR HGB CONC 34.1 g/dL (32.0-36.0); MEAN CORPUSCULAR VOLUME 94 fl (80-97); MONOCYTES % (AUTO) 6.7 % (3-13); PLATELET COUNT 210 10^3/uL (150-450); RED BLOOD COUNT 4.05 10^6/uL (3.72-5.28); SEGMENTED NEUTROPHILS % (AUTO) 77.8 % (42-78); TOTAL CELLS COUNTED % (AUTO) 100 %; WHITE BLOOD COUNT 15.5 10^3/uL (4.0-10.5)
[2017-10-02] MEDS ORDERED: DOXYCYCLINE HYCLATE 100 MG TABLET PO ONE (22:24)
[2017-10-02 22:52] VITALS: BP 104/63
== END 2017-10-02 22:52 | disposition home or self-care (01) ==
LOC: ER 18:47
DX: R51 Headache (principal); R50.9 Fever, unspecified; M54.2 Cervicalgia; M43.6 Torticollis; D72.829 Elevated white blood cell count, unspecified; F17.200 Nicotine dependence, unspecified, uncomplicated; Z86.69 Personal history of other diseases of the nervous system and sense organs
CPT/HCPCS: 99283; 96374; 96375; 36415; 87070; 87205; 85025; 89050; 82945; 84157; 80048; 62270; J1200; J3490 ×2; J2765

== ENCOUNTER 2018-03-23 14:19 | Emergency (ER) | payer SELFPAY ==
[2018-03-23 14:34] VITALS: BP 117/70
[2018-03-23] MEDS ORDERED: PROMETHAZINE HCL 25 MG TABLET PO ONE (15:37)
[2018-03-23] MEDS ORDERED: DIPHENHYDRAMINE HCL 25 MG CAPSULE PO ONE (15:37)
--- NOTE | 2018-03-23 15:40 | ER Document Report ---
ED Medical Screen (RME) - General Chief Complaint: Headache Stated Complaint: HEAD PAIN Time Seen by Provider: 03/23/18 15:32 Mode of Arrival: Wheelchair Information source: Patient, Relative - boyfriend Notes: patients presents with c/o typical migraine, throbbing temples that started this am. took tylenol/motrin at 1200 today. light smell irritate her. TRAVEL OUTSIDE OF THE [place] IN LAST 30 DAYS: No - Related Data Allergies/Adverse Reactions: No Known Allergies Allergy (Verified 03/23/18 14:19) Past Medical History - Social History Chew tobacco use (# tins/day): No Frequency of alcohol use: None Drug Abuse: None Neurological Medical History: Reports: Hx Migraine Renal/ Medical History: Denies: Hx Peritoneal Dialysis - Immunizations Hx Diphtheria, Pertussis, Tetanus Vaccination: Yes - 2 years Physical Exam - Vital signs Vitals: Temp Pulse Resp BP Pulse Ox 97.4 F 76 17 117/70 100 03/23/18 14:33 03/23/18 14:33 03/23/18 14:33 03/23/18 14:33 03/23/18 14:33 Course - Vital Signs Vital signs: Temp Pulse Resp BP Pulse Ox 97.4 F 76 17 117/70 100 03/23/18 14:33 03/23/18 14:33 03/23/18 14:33 03/23/18 14:33 03/23/18 14:33 Doctor's Discharge - Discharge Disposition: ELOPED
== END 2018-03-23 16:30 | disposition left against medical advice (07) ==
LOC: ER 14:19
DX: Z53.21 Procedure and treatment not carried out due to patient leaving prior to being seen by health care provider (principal); R51 Headache
CPT/HCPCS: 99281

== ENCOUNTER 2018-03-23 21:14 | Emergency (ER) | payer SELFPAY ==
[2018-03-23 21:28] VITALS: BP 105/71
--- NOTE | 2018-03-23 23:56 | ER Document Report ---
ED Headache - General Mode of Arrival: Ambulatory Information source: Patient TRAVEL OUTSIDE OF THE [place] IN LAST 30 DAYS: No - General Chief Complaint: Headache Stated Complaint: HEADACHE Time Seen by Provider: 03/23/18 23:36 Notes: 38-year-old female who presents to the emergency department today with complaints of a migraine headache. Patient has a history of migraine headaches and she has been seen in this department several times in the past for her headaches. Patient states her migraine today feels similar to her previous headaches. Patient states her headache began this morning upon awakening. Patient describes the location of her headache as "the temples on the side". Patient was seen here in this department earlier today but left prior to being discharged however she states that she was "given a pill". Patient states that she does not know what usually works for her headaches. Patient has not tried any medications at home. Patient has been followed by neurology in the past but she states that it has "been a while". Patient states she has neck pain with an associated fever but she does not know what her temperature is. When asked why she thinks she has a fever she says "i dont know, stop asking me questions". Patient denies any vomiting. The patient is very confrontational and quite difficult to obtain any history from. (NEELAM GOLDEN) - Related Data Allergies/Adverse Reactions: No Known Allergies Allergy (Verified 03/23/18 14:19) Past Medical History - General Information source: Patient - Social History Smoking Status: Never Smoker Cigarette use (# per day): No Frequency of alcohol use: None Drug Abuse: None Lives with: Family Family History: Reviewed & Not Pertinent, Other - father has hx of migraines Patient has suicidal ideation: No Patient has homicidal ideation: No Neurological Medical History: Reports: Hx Migraine - Immunizations Hx Diphtheria, Pertussis, Tetanus Vaccination: Yes - 2 years Review of Systems - Review of Systems Constitutional: See HPI, Fever EENT: No symptoms reported Cardiovascular: No symptoms reported Respiratory: No symptoms reported Gastrointestinal: denies: Vomiting Genitourinary: No symptoms reported Female Genitourinary: No symptoms reported Musculoskeletal: See HPI, Neck pain Skin: No symptoms reported Hematologic/Lymphatic: No symptoms reported Neurological/Psychological: See HPI, Headaches -: Yes All other systems reviewed and negative Physical Exam - Vital signs Vitals: Temp Pulse Resp BP Pulse Ox 97.4 F 80 17 105/71 100 03/23/18 21:26 03/23/18 21:26 03/23/18 21:26 03/23/18 21:26 03/23/18 21:26 - Notes Notes: PHYSICAL EXAM GENERAL: Sleeping, easily awakened when entering the room. No acute distress. HEAD: Normocephalic, atraumatic. EYES: Pupils equal, round, and reactive to light. Extraocular movements intact. ENT: Oral mucosa moist, tongue midline. Nares patent, no nasal septal hematoma, TM's intacts. Cobblestoning of the posterior oropharynx. NECK: Full range of motion. Supple. Trachea midline. Left posterior cervical lymphadenopathy. LUNGS: Clear to auscultation bilaterally, no wheezes, rales, or rhonchi. No respiratory distress. HEART: Regular rate and rhythm. No murmurs, gallops, or rubs. ABDOMEN: Soft, non-tender. Non-distended. Bowel sounds present in all 4 quadrants. No guarding, rigidity, or rebound. EXTREMITIES: Moves all 4 extremities spontaneously. No edema, radial and dorsalis pedis pulses 2/4 bilaterally. No cyanosis. NEUROLOGICAL: Alert and oriented x3. Normal speech. Cranial nerves II through XII grossly intact. PSYCH: Appears frustrated. Impatient with examination. SKIN: Warm, dry, normal turgor. No rashes or lesions noted. (NEELAM GOLDEN) Course - Re-evaluation Re-evalutation: 03/24/18 00:[address] through medical screening examination, became quite irate, refused to allow completion of physical examination. Patient was given the option of finishing physical examination and receiving appropriate medications or choosing to leave prior to completion of medical screening exam. Patient states that she does not want to ask any more questions and then proceeded to take off of her blood pressure cuff and remove her own IV. Patient is choosing to leave without completing medical screening exam and without receiving her discharge instructions. (KEYSHA WEBB) - Vital Signs Vital signs: Temp Pulse Resp BP Pulse Ox 97.4 F 80 17 105/71 100 03/23/18 21:26 03/23/18 21:26 03/23/18 21:26 03/23/18 21:26 03/23/18 21:26 Discharge - Discharge Clinical Impression: Migraine headache Qualifiers: Migraine type: without aura Status migrainosus presence: with status migrainosus Intractability: intractable Qualified Code(s): G43.011 - Migraine without aura, intractable, with status migrainosus Condition: Stable Disposition: HOME, SELF-CARE Additional Instructions: You have chosen to leave prior to completing your medical screening examination. You are welcome to return to the emergency department at any time. Jeannetteibe Attestation: 03/24/18 06:20 I personally performed the services described in the documentation, reviewed and edited the documentation which was dictated to the scribe in my presence, and it accurately records my words and actions. (KEYSHA WEBB) Jeannetteibe Documentation - Scribe Written by Lynn:: Lynn Trujillo, 03/24/2018 0250 acting as scribe for :: April
== END 2018-03-24 00:01 | disposition left against medical advice (07) ==
LOC: ER 21:14
DX: G43.011 Migraine without aura, intractable, with status migrainosus (principal)
CPT/HCPCS: 99282

== ENCOUNTER → 2018-08-25 | Outpatient (CLI) | payer BC ==
--- NOTE | 2018-08-25 10:40 | RADIOLOGY REPORT (SQ) ---
EXAM DESCRIPTION: WRIST RIGHT 3 VIEWS COMPLETED DATE/TIME: 08/25/2018 9:48 am REASON FOR STUDY: RIGHT WRIST PAIN M25.531 PAIN IN RIGHT WRIST COMPARISON: None. NUMBER OF VIEWS: Three views. TECHNIQUE: AP, lateral, and oblique radiographic images acquired of the right wrist. LIMITATIONS: None. FINDINGS: MINERALIZATION: Normal. BONES: No acute fracture or dislocation. No worrisome bone lesions. Normal alignment. SOFT TISSUES: No soft tissue swelling. No foreign body. OTHER: No other significant finding. IMPRESSION: NEGATIVE STUDY OF THE RIGHT WRIST. NO RADIOGRAPHIC EVIDENCE OF ACUTE INJURY. TECHNICAL DOCUMENTATION: JOB ID: [id number] [employer]- All Rights Reserved Reading location - IP/workstation name: [email or web address]
--- NOTE | 2018-08-25 10:41 | RADIOLOGY REPORT (SQ) ---
EXAM DESCRIPTION: HAND RIGHT 3 VIEWS COMPLETED DATE/TIME: 08/25/2018 9:48 am REASON FOR STUDY: RIGHT HAND PAIN M25.531 PAIN IN RIGHT WRIST COMPARISON: None. EXAM PARAMETERS: NUMBER OF VIEWS: Three views. TECHNIQUE: AP, lateral and oblique radiographic images acquired of the right hand. LIMITATIONS: None. FINDINGS: MINERALIZATION: Normal. BONES: No acute fracture or dislocation. No worrisome bone lesions. JOINTS: No effusions. SOFT TISSUES: No soft tissue swelling. No foreign body. OTHER: No other significant finding. IMPRESSION: NEGATIVE STUDY OF THE RIGHT HAND. NO RADIOGRAPHIC EVIDENCE OF ACUTE INJURY. TECHNICAL DOCUMENTATION: JOB ID: [id number] [employer]- All Rights Reserved Reading location - IP/workstation name: [email or web address]
== END ==
LOC: OD 09:29
PROVIDERS: ATTEND Nurse Practitioner Family
DX: M25.531 Pain in right wrist (principal); M79.641 Pain in right hand